=== PATIENT | male | born 2000 | race Caucasian/White ===

== ENCOUNTER 2022-09-08 13:33 | Outpatient (CLI) | payer OTHER, SELFPAY ==
--- NOTE | 2022-09-08 13:53 | XRR_ITS ---
PROCEDURE INFORMATION: Exam: XR Chest Exam date and time: 09/08/2022 2:01 PM Age: 22 years old Clinical indication: Screening exam; Other screening; Patient HX: Work regulated monitering, screening; Additional info: Regulated program monitoring TECHNIQUE: Imaging protocol: Radiologic exam of the chest. Views: 2 views. COMPARISON: No relevant prior studies available. FINDINGS: Lungs: Right hilar to lower lobe atelectasis versus minimal infiltrate. Pleural spaces: Unremarkable. No pleural effusion. No pneumothorax. Heart/Mediastinum: Unremarkable. No cardiomegaly. Bones/joints: Unremarkable. XR/XR chest 2V* [id number] IMPRESSION: Right hilar to lower lobe atelectasis versus minimal infiltrate.
== END 2022-09-08 13:34 | disposition home or self-care (01) ==
LOC: RAD 13:39
PROVIDERS: Visit Provider Preventive Medicine Occupational Medicine
DX: Z13.6 Encounter for screening for cardiovascular disorders (principal)
CPT/HCPCS: 71046

== ENCOUNTER 2024-05-23 15:55 | Emergency (ER) | payer OTHER, SELFPAY ==
[2024-05-23 16:11] VITALS: BP 126/78; PULSE 108; RESP 18; TEMP 37.7; O2SAT 99; BMI 24.7
[2024-05-23 17:15] VITALS: BP 148/82; PULSE 98; RESP 18; O2SAT 98
--- NOTE | 2024-05-23 17:38 | ED_ITS ---
Documented by User: Willis Rubalcava DO 05/24/24 05:42 HPI - General Adult 2 General: Chief complaint: General Medical Stated complaint: Weakness Time Seen by Provider: 05/23/24 17:07 History of Present Illness: 24-year-old male presents to the emergen cy room complaining of sore throat and generalized weakness. Patient is brought in by EMS. After having an episode while at work where he got lightheaded dizzy. He reports having numbness and tingling in his face and hands having a near syncopal-like episode. That resolved. He has not had any further symptoms. He did not have any chest pain no abdominal pain still has a sore throat. Associated symptoms: Deny chest pain, dyspnea or rash Related Data Previous Rx's Medication Instructions Recorded clindamycin HCl 300 mg capsule 300 mg PO Q6H 7 days #28 caps 05/23/24 meloxicam 15 mg tablet 15 mg PO DAILY PRN fever or pain 05/23/24 #14 tabs Review of Systems 2 Const: Reports: fever(s); Denies: chills ENMT: Reports: throat pain, enlarged tonsils, odynophagia and hoarseness Card: Denies: chest pain Resp: Denies: dyspnea GI: Denies: abdominal pain : Denies: dysuria, urinary frequency or urinary urgency Musc: Denies: neck pain or back pain Skin/Breast: Denies: rash Physical Exam 2 Const: GENERAL APPEARANCE: cooperative ORIENTATION/CONSCIOUSNESS: Yes awake, Yes oriented to person, Yes oriented to place and Yes oriented to time HENMT: COMMON NORMALS: normocephalic, atraumatic and hearing grossly normal bilaterally HEAD & SCALP: normocephalic and atraumatic OTHER: Posterior pharyngeal wall inflammation significant exudate on the left tonsil none on the right. Resp: COMMON NORMALS: normal respiratory effort, No retractions, No use of accessory muscles and clear to auscultation bilaterally AUSCULTATION: clear to auscultation bilaterally Cardio: COMMON NORMALS: regular rate, regular rhythm and No murmurs present (Cardio) RATE: regular rate RHYTHM: regular rhythm GI: COMMON NORMALS: Soft to palpation and No hepatosplenomegaly present A USCULTATION: Yes normoactive bowel sounds PALPATION: Yes Soft to palpation, No Tenderness to palpation present (GI), No Guarding due to palpation present (GI) and Yes No hepatosplenomegaly present Extremity: COMMON NORMALS: normal to inspection, capillary refill normal, no clubbing, cyanosis or edema, no calf tenderness and no pedal edema Neuro: SENSORIUM/ORIENTATION: Yes oriented to person, Yes oriented to place and Yes oriented to time Skin: COMMON NORMALS: no rashes or lesions noted GENERAL SKIN EXAM: no rashes or lesions noted Course 2 Vital Signs: Vital signs: Vital Signs Temperature 99.9 F H 05/23/24 16:11 Pulse Rate 91 05/23/24 19:33 Respiratory Rate 18 05/23/24 17:15 Blood Pressure 103/80 05/23/24 19:33 Pulse Oximetry 98 05/23/24 19:33 Oxygen Delivery Me thod Room Air 05/23/24 16:11 MDM - General Adult Medical Decision Making Care signed out to Dr. Rojas at change of shift. See final notes for diagnosis and disposition. Case turned over to myself at shift change, lab work was reviewed and discussed with the patient and . We will place patient over on clindamycin and meloxicam/Tylenol, he will stay home from work tomorrow and go back to work on Tuesday. Lab Data 05/23/24 17:57 05/23/24 17:57 Laboratory Results WBC 6.04 10^3/uL (3.29-11.43) 05/23/24 17:57 RBC 4.77 10^6/uL (3.85-5.65) 05/23/24 17:57 Hgb 13.30 g/dL (11.27-16.99) 05/23/24 17:57 Hct 40.4 % (37-53) 05/23/24 17:57 MCV 84.7 fl (82-101) 05/23/24 17:57 MCH 27.9 pg (27-33) 05/23/24 17:57 MCHC 32.9 g/dL (30-55) 05/23/24 17:57 RDW 12.5 % (12.1-15.1) 05/23/24 17:57 Plt Count 143 10^3/cmm (157-399) L 05/23/24 17:57 MPV 11.6 fL (7.4-10.4) H 05/23/24 17:57 Neut % (Auto) 69.0 % 05/23/24 17:57 Lymph % (Auto) 17.5 % 05/23/24 17:57 [place] % (Auto) 12.9 % 05/23/24 17:57 Eos % (Auto) 0.0 % 05/23/24 17:57 Baso % (Auto) 0.3 % 05/23/24 17:57 Neut # (Auto) 4.16 10^3/uL (1.8-7.7) 05/23/24 17:57 Lymph # (Auto) 1.1 10^3/uL (0.8-4.8) 05/23/24 17:57 [place] # (Auto) 0.8 10^3/uL (0.2-0.9) 05/23/24 17:57 Eos # (Auto) 0.0 10^3/uL (0.0-0.8) 05/23/24 17:57 Baso # (Auto) 0.0 10^3/uL (0.0-0.1) 05/23/24 17:57 Nucleated RBC % (auto) 0 % 05/23/24 17:57 Nucleated RBCs # 0.0 /100WBC 05/23/24 17:57 Sodium 139 mmol/L (136-145) 05/23/24 17:57 Potassium 3.6 mmol/L (3.5-5.1) 05/23/24 17:57 Chloride 100 mmol/L (98-107) 05/23/24 17:57 Carbon Dioxide 25 mmol/L (22-29) 05/23/24 17:57 Anion Gap 17.6 (5-19) 05/23/24 17:57 BUN 14 mg/dL (6-20) 05/23/24 17:57 Creatinine 1.1 mg/dL (0.7-1.2) 05/23/24 17:57 GFR Calculation 81.6 mL/min (90-130) L 05/23/24 17:57 Glucose 113 mg/dL (65-115) 05/23/24 17:57 Calculated Osmolality 289 mOsm/kg (285-295) 05/23/24 17:57 Calcium 8.7 mg/dL (8.5-10.5) 05/23/24 17:57 Total Bilirubin 0.5 mg/dL (0.15-1.2) 05/23/24 17:57 AST 13 U/L (0-40) 05/23/24 17:57 ALT 8 U/L (0-41) 05/23/24 17:57 Alkaline Phosphatase 47 U/L (40-130) 05/23/24 17:57 Total Protein 7.5 g/dL (6.6-8.7) 05/23/24 17:57 Albumin 4.3 g/dL (3.5-5.2) 05/23/24 17:57 Globulin 3.2 g/dL (1.3-4.6) 05/23/24 17:57 Monoscreen Negative (Negative) 05/23/24 17:57 Discharge Plan Discharge Patient Disposition: Home Clinical Impression: Fever Qualifiers: Fever type: unspecified Qualified Code(s): R50.9 - Fever, unspecified Pharyngitis Qualifiers: Pharyngitis/tonsillitis etiology: unspecified etiology Qualified Code(s): J02.9 - Acute pharyngitis, unspecified Condition: Stable Prescriptions: New meloxicam 15 mg tablet 15 mg PO DAILY PRN (Reason: fever or pain) Qty: 14 0RF clindamycin HCl 300 mg capsule 300 mg PO Q6H 7 Days Qty: 28 0RF Discharge Orders: Discharge ED (Routine); Ordered 05/23/24 Ordered By: Timoteo Rojas Referrals: Siddhartha Flores MD [Primary Care Provider] - 1 week Patient Instructions: Fever - Adult, Pharyngitis (ED) Activity Restrictions/Additional Instructions: A prescription for clindamycin and meloxicam have been sent into [facility]. Please get them filled tomorrow and start taking them as directed. Please follow-up with your family doctor within next 7 days for further evaluation testing. Please stay home from work tomorrow and if you are feeling better restart on Tuesday. Stand Alone Forms: Work/School Release Coding Level of Care Code ED Search Engine Marketing Strategist for [employer] Documented by User: Timoteo Rojas DO 05/23/24 21:49 HPI - General Adult 2 General: Chief complaint: General Medical Stated complaint: Weakness Time Seen by Provider: 05/23/24 17:07 Related Data Previous Rx's Medication Instructions Recorded clindamycin HCl 300 mg capsule 300 mg PO Q6H 7 days #28 caps 05/23/24 meloxicam 15 mg tablet 15 mg PO DAILY PRN fever or pain 05/23/24 #14 tabs Course 2 Vital Signs: Vital signs: Vital Signs Temperature 99.9 F H 05/23/24 16:11 Pulse Rate 91 05/23/24 19:33 Respiratory Rate 18 05/23/24 17:15 Blood Pressure 103/80 05/23/24 19:33 Pulse Oximetry 98 05/23/24 19:33 Oxygen Delivery Me thod Room Air 05/23/24 16:11 MDM - General Adult Medical Decision Making Case turned over to myself at shift change, lab work was reviewed and discussed with the patient and . We will place patient over on clindamycin and meloxicam/Tylenol, he will stay home from work tomorrow and go back to work on Tuesday. Medical Records I reviewed the patient's medical records. Lab Data I reviewed the patient's lab results. 05/23/24 17:57 05/23/24 17:57 Laboratory Results WBC 6.04 10^3/uL (3.29-11.43) 05/23/24 17:57 RBC 4.77 10^6/uL (3.85-5.65) 05/23/24 17:57 Hgb 13.30 g/dL (11.27-16.99) 05/23/24 17:57 Hct 40.4 % (37-53) 05/23/24 17:57 MCV 84.7 fl (82-101) 05/23/24 17:57 MCH 27.9 pg (27-33) 05/23/24 17:57 MCHC 32.9 g/dL (30-55) 05/23/24 17:57 RDW 12.5 % (12.1-15.1) 05/23/24 17:57 Plt Count 143 10^3/cmm (157-399) L 05/23/24 17:57 MPV 11.6 fL (7.4-10.4) H 05/23/24 17:57 Neut % (Auto) 69.0 % 05/23/24 17:57 Lymph % (Auto) 17.5 % 05/23/24 17:57 [place] % (Auto) 12.9 % 05/23/24 17:57 Eos % (Auto) 0.0 % 05/23/24 17:57 Baso % (Auto) 0.3 % 05/23/24 17:57 Neut # (Auto) 4.16 10^3/uL (1.8-7.7) 05/23/24 17:57 Lymph # (Auto) 1.1 10^3/uL (0.8-4.8) 05/23/24 17:57 [place] # (Auto) 0.8 10^3/uL (0.2-0.9) 05/23/24 17:57 Eos # (Auto) 0.0 10^3/uL (0.0-0.8) 05/23/24 17:57 Baso # (Auto) 0.0 10^3/uL (0.0-0.1) 05/23/24 17:57 Nucleated RBC % (auto) 0 % 05/23/24 17:57 Nucleated RBCs # 0.0 /100WBC 05/23/24 17:57 Sodium 139 mmol/L (136-145) 05/23/24 17:57 Potassium 3.6 mmol/L (3.5-5.1) 05/23/24 17:57 Chloride 100 mmol/L (98-107) 05/23/24 17:57 Carbon Dioxide 25 mmol/L (22-29) 05/23/24 17:57 Anion Gap 17.6 (5-19) 05/23/24 17:57 BUN 14 mg/dL (6-20) 05/23/24 17:57 Creatinine 1.1 mg/dL (0.7-1.2) 05/23/24 17:57 GFR Calculation 81.6 mL/min (90-130) L 05/23/24 17:57 Glucose 113 mg/dL (65-115) 05/23/24 17:57 Calculated Osmolality 289 mOsm/kg (285-295) 05/23/24 17:57 Calcium 8.7 mg/dL (8.5-10.5) 05/23/24 17:57 Total Bilirubin 0.5 mg/dL (0.15-1.2) 05/23/24 17:57 AST 13 U/L (0-40) 05/23/24 17:57 ALT 8 U/L (0-41) 05/23/24 17:57 Alkaline Phosphatase 47 U/L (40-130) 05/23/24 17:57 Total Protein 7.5 g/dL (6.6-8.7) 05/23/24 17:57 Albumin 4.3 g/dL (3.5-5.2) 05/23/24 17:57 Globulin 3.2 g/dL (1.3-4.6) 05/23/24 17:57 Monoscreen Negative (Negative) 05/23/24 17:57 No radiology studies performed this visit Discharge Plan Discharge Patient Disposition: Home Clinical Impression: Fever Qualifiers: Fever type: unspecified Qualified Code(s): R50.9 - Fever, unspecified Pharyngitis Qualifiers: Pharyngitis/tonsillitis etiology: unspecified etiology Qualified Code(s): J02.9 - Acute pharyngitis, unspecified Condition: Stable Prescriptions: New meloxicam 15 mg tablet 15 mg PO DAILY PRN (Reason: fever or pain) Qty: 14 0RF clindamycin HCl 300 mg capsule 300 mg PO Q6H 7 Days Qty: 28 0RF Discharge Orders: Discharge ED (Routine); Ordered 05/23/24 Ordered By: Timoteo Rojas Referrals: Siddhartha Flores MD [Primary Care Provider] - 1 week Patient Instructions: Fever - Adult, Pharyngitis (ED) Activity Restrictions/Additional Instructions: A prescription for clindamycin and meloxicam have been sent into [facility]. Please get them filled tomorrow and start taking them as directed. Please follow-up with your family doctor within next 7 days for further evaluation testing. Please stay home from work tomorrow and if you are feeling better restart on Tuesday. 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
[2024-05-23] MEDS: ketorolac 30 mg/mL INJ IVP (17:59)
[2024-05-23 18:00] VITALS: BP 136/84; PULSE 87; O2SAT 98
[2024-05-23] MEDS: clindamycin 600 MG/50 ML PREMIX 100 MG IV (18:00)
[2024-05-23 18:07] LABS: Basophils % 0.3 %; Hematocrit 40.4 % (37-53); Lymphocytes # 1.1 10^3/uL (0.8-4.8); Lymphocytes % 17.5 %; Mean Corpuscular HGB Conc 32.9 g/dL (30-55); Mean Corpuscular Hemoglobin 27.9 pg (27-33); Mean Corpuscular Volume 84.7 fl (82-101); Mean Platelet Volume 11.6 fL (7.4-10.4); Monocytes # 0.8 10^3/uL (0.2-0.9); Monocytes % 12.9 %; Neutrophils # 4.16 10^3/uL (1.8-7.7); Nucleated Red Blood Cells % 0 %; Platelet Count 143 10^3/cmm (157-399); Red Blood Count 4.77 10^6/uL (3.85-5.65); Red Cell Distribution Width 12.5 % (12.1-15.1); White Blood Count 6.04 10^3/uL (3.29-11.43)
[2024-05-23] MEDS: ondansetron 2 mg/ML SDV 2 mL 4 MG IVP (18:09)
[2024-05-23 18:20] LABS: Alanine Aminotransferase 8 U/L (0-41); Albumin Level 4.3 g/dL (3.5-5.2); Alkaline Phosphatase 47 U/L (40-130); Anion Gap 17.6 (5-19); Aspartate Amino Transferase 13 U/L (0-40); Blood Urea Nitrogen 14 mg/dL (6-20); Calcium 8.7 mg/dL (8.5-10.5); Carbon Dioxide 25 mmol/L (22-29); Chloride 100 mmol/L (98-107); Globulin 3.2 g/dL (1.3-4.6); Glomerular Filtration Rate 81.6 mL/min (90-130); Glucose 113 mg/dL (65-115); Osmolality Calculated 289 mOsm/kg (285-295); Potassium 3.6 mmol/L (3.5-5.1); Sodium 139 mmol/L (136-145); Total Bilirubin 0.5 mg/dL (0.15-1.2); Total Protein 7.5 g/dL (6.6-8.7)
[2024-05-23 18:22] LABS: Monoscreen Negative (Negative)
[2024-05-23 18:30] VITALS: BP 129/77; PULSE 91; O2SAT 97
[2024-05-23 19:00] VITALS: BP 128/70; PULSE 98; O2SAT 97
[2024-05-23] MEDS: meloxicam 7.5 mg tablet 15 MG PO (19:28)
[2024-05-23 19:33] VITALS: BP 103/80; PULSE 91; O2SAT 98
== END 2024-05-23 19:32 | disposition home or self-care (01) ==
PROVIDERS: Emergency Provider Family Medicine; PCP Family Medicine
DX: J02.9 Acute pharyngitis, unspecified (principal); R50.9 Fever, unspecified
CPT/HCPCS: 80053; 85025; 86308; 96365; 96375; 99284; J1885; J2405; J3490